=== PATIENT | male | born 1975 | race Two or more races ===

== ENCOUNTER 2020-09-20 02:31 | Emergency (ER) | payer SELFPAY ==
[2020-09-20 02:40] VITALS: BP 159/106; PULSE 102; RESP 18; TEMP 98.2
--- NOTE | 2020-09-20 03:39 | ED ---
Recheck HPI - General Chief Complaint: Recheck/Abnormal Lab/Rx Stated Complaint: Covid test Time Seen by Provider: 09/20/20 02:52 Source: patient Mode of arrival: ambulatory Limitations: no limitations - History of Present Illness Initial Comments: This patient is a 45-year-old man who presents with request to have code the testing so [place]. He denies any medical complaints and declines a screening exam. - Related Data Allergies Allergy/AdvReac Type Severity Reaction Status Date / Time No Known Allergies Allergy Verified 09/20/20 02:40 Review of Systems ROS Statement: Those systems with pertinent positive or pertinent negative responses have been documented in the HPI. ROS Other: All systems not noted in ROS Statement are negative. Past Medical History Past Medical History: No Reported History History of Any Multi-Drug Resistant Organisms: None Reported Past Surgical History: Hernia Repair Past Psychological History: No Psychological Hx Reported Smoking Status: Never smoker Past Alcohol Use History: None Reported Past Drug Use History: None Reported General Exam Limitations: no limitations Course Vital Signs 09/20/20 09/20/20 02:34 03:11 Temperature 98.2 F Pulse Rate 102 H Respiratory 18 18 Rate Blood Pressure 159/106 O2 Sat by Pulse 95 Oximetry Medical Decision Making - Medical Decision Making Patient is only here for testing so he that he can cross [place]. - Lab Data Lab Results 09/20/20 Range/Units 03:09 Coronavirus (PCR) Not Detected (Not Detectd) Disposition Clinical Impression: Immunity status testing Disposition: HOME SELF-CARE Condition: Good Is patient prescribed a controlled substance at d/c from ED?: No Referrals: None,Stated [Primary Care Provider] - 1-2 days
== END 2020-09-20 04:25 | disposition home or self-care (01) ==
LOC: EC 02:31
DX: Z01.84 Encounter for antibody response examination (principal); Z20.822 Contact with and (suspected) exposure to COVID-19
CPT/HCPCS: 87635; 99282